=== PATIENT | female | born 1980 | race Caucasian/White ===

== ENCOUNTER 2018-09-13 05:41 | Day surgery (SDC) | payer OTHER ==
[2018-09-13] MEDS ORDERED: LR 1,000 ML IV ONE (05:48)
[2018-09-13] MEDS ORDERED: MIDAZOLAM 2 MG/2 ML VIAL IVP ONE (06:51)
--- NOTE | 2018-09-13 06:51 | PDANEPAE ---
ANE Past Medical History - Cardiovascular History Hx Hypertension: No Hx Arrhythmias: No Hx Chest Pain: No Hx Coronary Artery / Peripheral Vascular Disease: No Hx CHF / Valvular Disease: No Hx Palpitations: No - Pulmonary History Hx COPD: No Hx Asthma/Reactive Airway Disease: No Hx Recent Upper Respiratory Infection: No Hx Oxygen in Use at Home: No Hx Sleep Apnea: No Sleep Apnea Screening Result - Last Documented: Negative - Neurologic History Hx Cerebrovascular Accident: No Hx Seizures: No Hx Dementia: No - Endocrine History Hx Diabetes: No Endocrine History Comment: HYPOTHYROID - Renal History Hx Renal Disorders: No - Liver History Hx Hepatic Disorders: No - Neurological & Psychiatric Hx Hx Neurological and Psychiatric Disorders: No - Cancer History Hx Cancer: No Cancer History Comment: PRECANCEROUS MOLES - Congenital Disorder History Hx Congenital Disorders: No - GI History Hx Gastrointestinal Disorders: No - Other Health History Other Health History: NEG - Chronic Pain History Chronic Pain: Yes (MANUELA KNEES) - Surgical History Prior Surgeries: KNEE SCOPE R. C SECTION. GANGLION CYST MANUELA HANDS. WISDOM TEETH ANE Review of Systems Review of Systems: - Exercise capacity METS (RN): 4 METS ANE Patient History - Allergies Allergies/Adverse Reactions: No Known Allergies Allergy (Unverified 02/24/10 18:28) - Home Medications Home Medications: Levothyroxine [Synthroid 137 mcg (RX)] 137 mcg PO DAILY06 10/04/11 [Last Taken 09/12/18] Herbals/Supplements -Info Only 09/05/18 [Last Taken 09/06/18] - NPO status NPO Since - Liquids (Date): 09/12/18 NPO Since - Liquids (Time): 22:00 NPO Since - Solids (Date): 09/12/18 NPO Since - Solids (Time): 15:00 - Smoking Hx Smoking Status: Never smoked ANE Labs/Vital Signs - Vital Signs Blood Pressure: 111/67 Heart Rate: 81 Respiratory Rate: 16 O2 Sat (%): 93 Height: 175.26 cm Weight: 77.111 kg ANE Physical Exam - Airway Neck exam: FROM Mallampati Score: Class 1 Mouth exam: normal dental/mouth exam - Pulmonary Pulmonary: clear to auscultation - Cardiovascular Cardiovascular: regular rate and rhythym - ASA Status ASA Status: II ANE Anesthesia Plan Anesthesia Plan: general endotracheal anesthesia
[2018-09-13] MEDS ORDERED: BUPIVACAINE/EPI 0.25% 30 ML SDV ONE (06:52)
[2018-09-13] MEDS ORDERED: SILVER NITRATE APPLICATOR 1 APPL TP ONE (06:52)
[2018-09-13] MEDS ORDERED: SCOPOLAMINE HYDROBROMIDE 1 MG/3 DAYS PATCH TD ONE (06:53)
[2018-09-13] MEDS ORDERED: fentaNYL 100 MCG/2 ML INJ ONE (07:00)
[2018-09-13] MEDS ORDERED: PROPOFOL 200 MG/20 ML VIAL ONE (07:00)
[2018-09-13] MEDS ORDERED: ROCURONIUM 50 MG/5 ML VIAL ONE (07:02)
--- NOTE | 2018-09-13 07:06 | PDGENHP ---
History and Physical - Chief Complaint Permanent sterilization - History of Present Illness 38 yo here today for laparoscopic bilateral salpingectomies. Met with her in the office and discussed a variety of options ranging from LARC to procedures. She'd prefer a permanent option. H/o prior but otherwise no abdominal surgeries or significant medical problems. She's quite aware that this should be considered a permanent procedure. History Information - Allergies/Home Medication List Allergies/Adverse Reactions: No Known Allergies Allergy (Unverified 02/24/10 18:28) Home Medications: Levothyroxine [Synthroid 137 mcg (RX)] 137 mcg PO DAILY06 10/04/11 [Last Taken 09/12/18] Herbals/Supplements -Info Only 09/05/18 [Last Taken 09/06/18] I have personally reviewed and updated: family history, medical history, social history, surgical history Past Medical History: Hypothyroidism - Surgical History Additional surgical history: H/o prior section - Family History Positive for: non-pertinent - Social History Smoking Status: Never smoked Review of Systems Review of Systems: ROS: 10pt was reviewed & negative except for what was stated in HPI & below Physical Exam Physical Exam: Temp Pulse Resp BP Pulse Ox 36.9 C 81 16 111/67 93 09/13/18 06:03 09/13/18 06:51 09/13/18 06:51 09/13/18 06:51 09/13/18 06:51 Constitutional: no apparent distress, appears nourished, not in pain Eyes: PERRL, anicteric sclera Ears, Nose, Mouth, Throat: moist mucous membranes Neurologic: AAOx3, CN II-XII Intact, No weakness Psychiatric: interacting appropriately, not anxious, No depressed Assessment & Plan Assessment: Preop: LS bilateral salpingectomies for permanent sterilization. - Routine preop orders. - No abx needed. - Plan is home from PACU. SHANEL
[2018-09-13] MEDS ORDERED: DEXAMETHASONE 4 MG/ML VIAL ONE ×2 (07:28)
[2018-09-13] MEDS ORDERED: KETOROLAC 30 MG/1 ML SDV ONE (07:28)
[2018-09-13] MEDS ORDERED: ONDANSETRON 4 MG/2 ML VIAL ONE ×2 (07:28→08:26)
[2018-09-13] MEDS ORDERED: PHENYLEPHRINE HCL 100 MCG/ML SYR ONE (07:32)
[2018-09-13] MEDS ORDERED: GLYCOPYRROLATE 0.2 MG/1 ML VIAL ONE (07:50)
[2018-09-13] MEDS ORDERED: ePHEDrine SULFATE 25 MG/5 ML SYR ONE (08:01)
[2018-09-13] MEDS ORDERED: SUGAMMADEX SODIUM 200 MG/2 ML VIAL IVP ONE (08:06)
[2018-09-13] MEDS ORDERED: fentaNYL 100 MCG/2 ML INJ IVP PRN (08:09)
[2018-09-13] MEDS ORDERED: LR 500 ML IV PRN (08:09)
[2018-09-13] MEDS ORDERED: NALOXONE HCL 0.4 MG/ML INJ IVP PRN (08:09)
[2018-09-13] MEDS ORDERED: ALBUTEROL 3 ML DEYVIAL IH PRN (08:09)
[2018-09-13] MEDS ORDERED: ONDANSETRON 4 MG/2 ML VIAL IVP PRN (08:09)
[2018-09-13] MEDS ORDERED: HYDROmorphONE/DILAUDID 2 MG/ML INJ IVP PRN (08:09)
[2018-09-13] MEDS ORDERED: METOCLOPRAMIDE 10 MG/2 ML VIAL IVP PRN (08:09)
[2018-09-13] MEDS ORDERED: oxyCODONE IR 5 MG TAB PO PRN (08:09)
[2018-09-13] MEDS ORDERED: DIAZEPAM 5 MG/ML 1 ML SYR IVP PRN (08:09)
[2018-09-13] MEDS ORDERED: MEPERIDINE 25 MG/0.5 ML AMP IVP PRN (08:09)
[2018-09-13] MEDS ORDERED: PROMETHAZINE HCL 25 MG/ML INJ IVP PRN (08:09)
--- NOTE | 2018-09-13 08:38 | POSTOPPROG ---
Post Op Note Date of Operation: 09/13/18 Surgeon: Sridhar Schroeder
[2018-09-13] MEDS ORDERED: oxyCODONE IR 5 MG TAB ONE (08:44)
[2018-09-13 10:12] VITALS: BP 110/66
--- NOTE | 2018-09-13 11:58 | POSTANESTH ---
Post Anesthetic Evaluation Cardiovascular Status: Normal, Stable Respiratory Status: Normal, Stable Level of Consciousness/Mental Status: Can Participate in Eval Pain Control: Adequate, Prn Tx Ordered Nausea/Vomiting Control: Adequate, Prn Tx Ordered Complications Possibly Related to Anesthesia: None Noted
== END 2018-09-13 10:10 | disposition home or self-care (01) ==
LOC: FSGY 05:41
PROVIDERS: ATTEND Obstetrics & Gynecology
PROC: 0UT74ZZ Resection of Bilateral Fallopian Tubes, Percutaneous Endoscopic Approach (ICD-10-PCS; principal; 2018-09-13 07:15)
DX: Z30.2 Encounter for sterilization (principal); E03.9 Hypothyroidism, unspecified
CPT/HCPCS: J1100; J1885; J2250; J2370; J2405; J2704; J3010